=== PATIENT | male | born 1950 ===

== ENCOUNTER 2018-07-21 06:39 | Day surgery (SDC) | payer MEDICARE, MEDICAID ==
[2018-07-21 07:28] VITALS: BMI 23.6
[2018-07-21] MEDS ORDERED: Lactated Ringer's 500 ML IV ONE (08:39)
[2018-07-21] MEDS ORDERED: Propofol 10 mg/ml Inj (20 ML) ONE (08:43)
[2018-07-21] MEDS ORDERED: Midazolam 2 MG/2 ML VIAL ONE (08:43)
[2018-07-21] MEDS ORDERED: Lactated Ringer's 500 ML IV SCH (09:00)
[2018-07-21] MEDS ORDERED: Lidocaine Hydrochloride 5 ML INJ ONE (09:02)
[2018-07-21 10:41] VITALS: TEMP 98
[2018-07-21 10:51] VITALS: BP 115/70; PULSE 65; RESP 20; O2SAT 100
== END 2018-07-21 10:30 | disposition home or self-care (01) ==
LOC: C.ENDO 06:39
PROVIDERS: ATTEND Internal Medicine Gastroenterology
DX: D12.0 Benign neoplasm of cecum (principal); D12.2 Benign neoplasm of ascending colon; D12.4 Benign neoplasm of descending colon; K29.30 Chronic superficial gastritis without bleeding; K44.9 Diaphragmatic hernia without obstruction or gangrene; K57.30 Diverticulosis of large intestine without perforation or abscess without bleeding; K64.1 Second degree hemorrhoids; Z86.010 Personal history of colon polyps
CPT/HCPCS: 43239; 45380; 45385; 88305; 88313; 88342; J2250; J2704; J7120